=== PATIENT | male | born 1995 | race Caucasian/White ===

== ENCOUNTER 2018-07-29 20:41 | Inpatient (IN) | payer OTHER ==
[~2018-07-29] VITALS: Ht 180.3 cm; Wt 101.2 kg
--- NOTE | ~2018-07-29 | PROC ---
[facility] [address] [place] [address] PROCEDURE REPORT Name: MARY AGGARWAL Room: [address] IN ..#: [id number] Admission: 07/29/18 Attend Phys: Shari Reddy Discharge: 07/31/18 Date of : [birth year] Report #: [id number] THIS REPORT FOR: //name// For GI report, please see the Provation report in Perceptive 7 content. By: 1235Medical Records Staff ANNA /CHARBEL
[2018-07-29 20:48] VITALS: BP 152/75
[2018-07-29 21:05] LABS: HEMATOCRIT 48.8 % (42.0-52.0); HEMOGLOBIN 16.4 gm/dL (14.0-18.0); MCH 28.5 pg (26.0-34.0); MCHC 33.6 g/dL (28.0-37.0); MCV 84.9 fL (80.0-100.0); MPV 8.1 fl. (7.2-11.1); NUCLEATED RBCS 0 /100WBC; PLATELET COUNT* 250 thou/uL (150-400); RBC 5.75 mil/uL (4.50-6.00); RDW-CV 13.4 % (10.5-14.5); WBC 16.1 thou/uL (4.0-11.0)
[2018-07-29] MEDS ORDERED: PROZAC20 MG PO (21:06)
[2018-07-29] MEDS ORDERED: METFORMIN HCL500 MG PO (21:06)
[2018-07-29] MEDS ORDERED: NOVOLOG100 UNIT/1 SUBQ (21:07)
[2018-07-29 21:18] LABS: ANION GAP 9 mmol/L (7-16); BUN 21 mg/dL (7-18); CALCIUM 9.1 mg/dL (8.5-10.1); CHLORIDE 100 mmol/L (98-107); CO2 32 mmol/L (21-32); CREATININE 0.9 mg/dL (0.6-1.3); GLUCOSE 61 mg/dL (70-99); POTASSIUM 3.6 mmol/L (3.5-5.1); SODIUM 141 mmol/L (136-145)
[2018-07-29 21:20] LABS: ALBUMIN 4.6 g/dL (3.4-5.0); ALKALINE PHOSPHATASE 66 U/L (46-116); LIPASE 61 U/L (73-393); SGOT 23 U/L (15-37); SGPT 26 U/L (30-65); TOTAL BILIRUBIN 0.5 mg/dL (<0.1-1.0); TOTAL PROTEIN 7.9 g/dL (6.4-8.2); TROPONIN-I LEVEL <0.06 ng/mL (<0.06)
[2018-07-29 21:54] LABS: ABSOLUTE LYMPHOCYTES 1.3 thou/uL (0.8-5.3); ABSOLUTE NEUTROPHILS 13.8 thou/uL (1.6-8.1)
[2018-07-29 21:55] LABS: PLATELET ESTIMATE ADEQUATE
[2018-07-29 23:09] LABS: URINE BILIRUBIN NEGATIVE (Negative); URINE BLOOD NEGATIVE (Negative); URINE CLARITY CLEAR; URINE COLOR YELLOW; URINE GLUCOSE-RANDOM 1+ (Negative); URINE KETONES 1+ (Negative); URINE LEUKOCYTES-REFLEX NEGATIVE (Negative); URINE NITRITE-REFLEX NEGATIVE (Negative); URINE PROTEIN NEGATIVE (Negative); URINE SPECIFIC GRAVITY 1.015 (1.005-1.030)
[2018-07-29 23:16] LABS: AMP/METHAMP Negative (Negative); BARBITURATES Negative (Negative); BENZODIAZEPINES Negative (Negative); COCAINE Negative (Negative); METHADONE Negative (Negative); OPIATES Negative (Negative); PCP Negative (Negative); THC POSITIVE (Negative)
[2018-07-29 23:46] VITALS: BP 112/46
[2018-07-29 23:55] VITALS: BP 116/66
--- NOTE | 2018-07-30 02:27 | NUR ---
RECEIVED REPORT FROM STORMY RN AT 3518. PT ARRIVED TO UNIT AT 2340 VIA CART. 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 SPOUSE AT BESIDE. NURSING ASSESSMENT COMPLETED. CALL LIGHT WITHIN REACH. PT VOICED NO CONCERNS. IV FLUIDS AND IV PROTONIX INFUSING.
[2018-07-30 04:00] VITALS: BP 105/50
--- NOTE | 2018-07-30 06:42 | NUR ---
PT RESTED THIS SHIFT, NO C/O NAUSEA/VOMITTING THIS SHIFT. TO BRING MEDICATION LIST THIS AM.
[2018-07-30 08:00] VITALS: BP 107/45
[2018-07-30] MEDS ORDERED: TRAZODONE HCL100 MG PO (10:42)
[2018-07-30 12:00] VITALS: BP 102/43
--- NOTE | 2018-07-30 13:30 | NUR ---
ASSUMED PT CARE AT 0700 PT IS ALERT AND ORIENTED X 4 PT DENIES PAIN OR SOA ON RA, PT IS UP AD SOUTH PT IS NOT A FALL RISK, PT HAS INSULIN PUMP HAS BEEN DISCONNECTED BROUGHT MED LIST IN THIS NURSE PAGED PHYSICIAN AND OBTAINED ORDERS TO RESTART HOME MEDICATION AND INSULIN COVERAGE, PT IS ON PROTONIX DRIP GI SAW PT PT IS ON CLEAR LIQUID DIET PT WILL BE NPO AT MIDNIGHT FOR PROCEDURE, PT IS ST ON THE MONITOR, PT DENIES NAUSEA OR VOMITING, PT IS PROGRESSING TOWARDS GOALS, WILL CONTINUE TO MONITOR
[2018-07-30 14:36] LABS: HEMATOCRIT 39.7 % (42.0-52.0); MCH 28.9 pg (26.0-34.0); MCHC 33.9 g/dL (28.0-37.0); MCV 85.4 fL (80.0-100.0); RBC 4.64 mil/uL (4.50-6.00); RDW-CV 13.5 % (10.5-14.5)
[2018-07-30 14:37] LABS: HEMOGLOBIN 13.4 gm/dL (14.0-18.0)
[2018-07-30 14:42] LABS: CALCIUM 7.9 mg/dL (8.5-10.1); MAGNESIUM 1.6 mg/dL (1.8-2.4); POTASSIUM 3.6 mmol/L (3.5-5.1)
[2018-07-30 16:00] VITALS: BP 105/51
[2018-07-30 20:00] VITALS: BP 110/52
[2018-07-31] VITALS (7 sets, daily range): BP systolic 78–118; BP diastolic 31–89
--- NOTE | 2018-07-31 05:36 | NUR ---
ASSUMED PT CARE AT 1930. 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 PT DENIES N/V THIS SHIFT. PT AFEBRILE. C/O WATERY DIARRHEA THIS SHIFT. AT 0015, PT BP 80/41, RECHECK WAS 78/31 AND 79/21. PT STATED HE FELT "FINE". DR. OSBORNE NOTIFIED, NEW ORDERS RECEIVED FOR FLUID BOLUS, SEE EMAR FOR DOCUMENTATION. PT BP IMPROVED WITH RECHECK, 107/36 PULSE 85. PT CONTINUES TO BE ASYMPTOMATIC. HOURLY ROUNDING COMLETED, CALL LIGHT WITHIN REACH. IV FLUIDS AND PROTONIX INFUSING. NPO FOR EGD THIS AM.
--- NOTE | 2018-07-31 09:47 | NUR ---
ASSUMED PT CARE AT 0700 PT IS ALERT AND ORIENTED X 4 PT DENIES PAIN OR SOA ON RA, PT IS UP AD SOUTH PT IS NOT A FALL RISK, PT HAS EPISODES OF LOOSE STOOLS PT HAS BEEN NPO SINCE MIDNIGHT PT HAVING EGD TODAY, PT IS SR ON THE MONITOR, PT WENT DOWN FOR EGD WILL CONTINUE TO MONITOR
--- NOTE | 2018-07-31 12:33 | EKG ---
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
[2018-07-31] MEDS ORDERED: CIPRO500 MG PO (13:03)
[2018-07-31] MEDS ORDERED: FLAGYL500 M1 PO (13:04)
[2018-07-31] MEDS ORDERED: PRILOSEC OTC20 MG PO (13:05)
--- NOTE | 2018-08-01 12:48 | CON ---
[address] [address] CONSULTATION Name: MARY AGGARWAL Room: [address] IN .R.#: [id number] Admission: 07/29/18 Attend Phys: Shari Reddy Discharge: 07/31/18 Date of : [birth year] Report #: [id number] THIS REPORT FOR: //name// CC: FAM unknown Eric Martínez HISTORY OF PRESENT ILLNESS: This is a pleasant 23-year-old male with history of type 1 diabetes who is presenting with coffee-ground emesis. The patient was in his usual status of health until yesterday when he began having symptoms of low blood glucose. The patient reports he is on an insulin pump and he reports that he tried 42. He was nauseated and began vomiting several times and reports that in the emesis, he noted black colored material. The patient denies having an EGD in the past. He does report a family history of gastric ulcers in his father. He denies any significant abdominal pain, nausea or vomiting at this time. PAST MEDICAL HISTORY: As mentioned above. The patient has a past medical history of type 1 diabetes. PAST SURGICAL HISTORY: None. FAMILY HISTORY: Positive for peptic ulcer disease. SOCIAL HISTORY: The patient denies any significant alcohol, tobacco or recreational drug use. PHYSICAL EXAMINATION: VITAL SIGNS: Temperature 37.7, pulse rate 112, respirations 15, blood pressure 105/50, pulse ox 98% on room air. GENERAL: The patient is alert, awake, oriented x 3. HEENT: Pupils are equal, round, reactive to light and accommodation. Mucous membranes are moist. NECK: There is no congestion. LUNGS: Clear to auscultation bilaterally. CARDIOVASCULAR: Rate and rhythm regular, S1, S2 present. ABDOMEN: Soft. There is no distention, guarding or rigidity. EXTREMITIES: Warm, well perfused. There is no edema. LABORATORY DATA: Hemoglobin 16.4, hematocrit 48.8, platelet count 250. Sodium 141, potassium 3.6, chloride 100, bicarbonate 32, BUN 21, creatinine 0.9, bilirubin 0.5, AST 23, ALT 26, alkaline phosphatase 66, lipase 61. Urine THC screen positive. ASSESSMENT AND PLAN: This is a pleasant 23-year-old male presenting with nausea, vomiting and coffee-ground emesis. A PPI [place] [address] CONSULTATION Name: MARY AGGARWAL Room: [address]#: [id number] Admission: 07/29/18 Attend Phys: Shari Reddy Discharge: 07/31/18 Date of : [birth year] Report #: [id number] recommend keeping the patient n.p.o. past midnight for EGD tomorrow. Further recommendations will be based on the results of EGD. <ELECTRONICALLY SIGNED> By: Jean Yun MD 08/01/18 1248 1202 [id number] ron Aponte
== END 2018-07-31 14:00 | disposition home or self-care (01) | DRG 371 ==
LOC: M.ERS 20:41 → M.TBA-ER 22:38 → M.2W 22:38
PROVIDERS: Emergency Medicine Emergency Medical Services; Internal Medicine Gastroenterology; ADMIT Internal Medicine
PROC: 0DJ08ZZ Inspection of Upper Intestinal Tract, Via Natural or Artificial Opening Endoscopic (ICD-10-PCS; principal; 2018-07-31)
DX: A04.9 Bacterial intestinal infection, unspecified (principal); K22.6 Gastro-esophageal laceration-hemorrhage syndrome; K92.0 Hematemesis; E10.649 Type 1 diabetes mellitus with hypoglycemia without coma; K21.0 Gastro-esophageal reflux disease with esophagitis; Z28.21 Immunization not carried out because of patient refusal; Z79.4 Long term (current) use of insulin; Z88.8 Allergy status to other drugs, medicaments and biological substances; Z87.11 Personal history of peptic ulcer disease; Z79.899 Other long term (current) drug therapy